=== PATIENT | female | born 1955 | race Caucasian/White ===

== ENCOUNTER 2020-04-30 17:55 | Emergency (ER) | payer OTHER ==
[~2020-04-30] VITALS: Ht 144.8 cm; Wt 81.8 kg
[2020-04-30] MEDS ORDERED: GLIP2.5ER PO (18:23)
[2020-04-30] MEDS ORDERED: OMEP10 PO (18:23)
[2020-04-30] MEDS ORDERED: LOSA25TA21 PO (18:23)
[2020-04-30] MEDS ORDERED: ROSU5TAB PO (18:23)
[2020-04-30] MEDS ORDERED: METF-960 PO (18:23)
[2020-04-30] MEDS ORDERED: ACETAMINOPHEN 500 MG TABLET PO ONE (18:30)
[2020-04-30 20:04] VITALS: BP 154/72
== END 2020-04-30 20:05 | disposition home or self-care (01) ==
LOC: EMS 17:55
DX: S43.401A Unspecified sprain of right shoulder joint, initial encounter (principal); E11.9 Type 2 diabetes mellitus without complications; E78.00 Pure hypercholesterolemia, unspecified; I10 Essential (primary) hypertension; W19.XXXA Unspecified fall, initial encounter; Y93.89 Activity, other specified; Y92.89 Other specified places as the place of occurrence of the external cause; Y99.8 Other external cause status